=== PATIENT | male | born 2000 | race Caucasian/White ===

== ENCOUNTER 2023-05-01 14:34 | Outpatient (CLI) | payer BC | END 2023-05-01 14:35 | disposition home or self-care (01) | LOC: CSHCT 14:34 | PROVIDERS: ATTEND Orthopaedic Surgery | DX: M25.571 Pain in right ankle and joints of right foot (principal); S92.121A Displaced fracture of body of right talus, initial encounter for closed fracture; S92.111A Displaced fracture of neck of right talus, initial encounter for closed fracture ==